=== PATIENT | male | born 1995 | race African-American/Black ===

== ENCOUNTER 2021-04-08 10:06 | Emergency (ER) | payer BC ==
[2021-04-08 10:17] VITALS: BP 117/73; PULSE 93; TEMP 99; BMI 35.5
== END 2021-04-08 11:27 | disposition home or self-care (01) ==
LOC: JERFT 10:06
DX: S93.402A Sprain of unspecified ligament of left ankle, initial encounter (principal)
CPT/HCPCS: 73610-TC-RT-FY; 73630-TC-RT-FY; 99284-25